=== PATIENT | female | born 1950 | race Caucasian/White ===

== ENCOUNTER 2018-10-02 09:27 | Inpatient (IN) | payer MEDICARE ==
[~2018-10-02] VITALS: Ht 162.6 cm; Wt 81.8 kg
[2018-10-02] MEDS ORDERED: ONDANSETRON 2MG/ML, 2ML ONE (09:33)
[2018-10-02] MEDS ORDERED: MORPHINE SULFATE 4 MG/ML, 1ML ONE (09:34)
[2018-10-02] MEDS ORDERED: ALBUTEROL/IPRATROPIUM 2.5MG/0.5MG, 3 ML ONE ×3 (09:35→21:24)
[2018-10-02 09:56] LABS: MEAN CORPUSCULAR HEMOGLOBIN 30.2 pg (27.0-34.8); MEAN CORPUSCULAR HGB CONC 32.5 g/dL (32.4-35.8); MEAN PLATELET VOLUME 7.1 fL (7.4-10.4); PLATELET COUNT 358 x10^3/uL (130-400); RED BLOOD COUNT 5.29 x10^6/uL (3.82-5.3); RED CELL DISTRIBUTION WIDTH 12.7 % (9.6-15.2)
--- NOTE | 2018-10-02 09:57 | NUR ---
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 PT ARRIVES RR34 AND IN DISTRESS, INITIAL SP02 86% ON 6L WITH CONT ALBUTEROL NEB INLINE. DR NGO AT [facility], PER DR NGO = PULM EDEMA. 2ND PIV LINE EST, LABS DRAWN, MONITORS PLACED. PT MED WITH ZOFRAN AND MORPHINE NOTED AND BIPAP INITIATED BY RT WITH EFFECT. SP02 IMPROVED TO 98% AND RR SLOWED TO 24. PT APPEARS LESS DESTRESS AND ABLE TO ANSWER QUESTIONS BY NODDING APPROPRIATELY. EKG COMPLETED. HR ST. PT DENIES CARDIAC HX
[2018-10-02] MEDS ORDERED: SODIUM CHLORIDE FLUSH 10ML SYR IVF ONE (10:00)
[2018-10-02] MEDS ORDERED: ONDANSETRON 2MG/ML, 2ML IVPush ONE (10:00)
[2018-10-02] MEDS ORDERED: MORPHINE SULFATE 4 MG/ML, 1ML IVPush ONE (10:00)
[2018-10-02] MEDS ORDERED: ALBUTEROL/IPRATROPIUM 2.5MG/0.5MG, 3 ML NEB ONE (10:00)
--- NOTE | 2018-10-02 10:00 | NUR ---
REPORT RECEIVED FROM ESTRELLITA MARTE. ASSUMED CARE OF PT. PT CURRENTLY SITTING UP ON GURNEY. PT ON BIPAP MACHINE. DIFFICULT TO AUSCULTATE LUNG SOUNDS D/T BIPAP MACHINE. COARSE T/O, WITH EXPIRATORY WHEEZES. PT AO X 4. SKIN PWD. 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 PT ON CONT BP, CARDIAC AND O2 MONITORS. CALL LIGHT WITHIN REACH. WILL CONT TO MONITOR PT.
[2018-10-02 10:02] LABS: INTERNATIONAL NORMALIZED RATIO 0.98 (0.93-1.1); PROTHROMBIN TIME 10.3 Seconds (9.6-11.5)
[2018-10-02 10:07] LABS: ALBUMIN 4.1 g/dL (3.4-5.0); ANION GAP 12 mmol/L (5-15); CALCIUM 9.1 mg/dL (8.5-10.1); CHLORIDE 109 mmol/L (98-107)
[2018-10-02 10:12] LABS: ALANINE AMINOTRANSFERASE 30 U/L (12-78); ALKALINE PHOSPHATASE 92 U/L (45-117); BASOPHILS # (AUTO) 0.12 x10^3/uL (0-0.1); BASOPHILS % (AUTO) 1 % (0-1); BILIRUBIN,TOTAL 0.7 mg/dL (0.2-1.0); EOSINOPHILS % (AUTO) 13 % (1-7); LYMPHOCYTES # (AUTO) 4.84 x10^3/uL (1-3.4); LYMPHOCYTES % (AUTO) 30 % (22-44); MD SCAN; MONOCYTES % (AUTO) 6 % (2-9); NEUTROPHILS # (AUTO) 8.29 x10^3/uL (1.8-6.8); NEUTROPHILS % (AUTO) 51 % (42-75); TOTAL PROTEIN 7.7 g/dL (6.4-8.2); TROPONIN I < 0.015 ng/mL (0.000-0.045)
--- NOTE | 2018-10-02 10:32 | NUR ---
AT BEDSIDE AT THIS TIME.
--- NOTE | 2018-10-02 10:34 | NUR ---
[facility] NGO AT BEDSIDE FOR EXPLANATION OF POC/RESULTS TO PT AND . PT AND VERBALIZE UNDERSTANDING.
[2018-10-02] MEDS ORDERED: AZITHROMYCIN 500 MG in SODIUM CHLORIDE 0.9% 250 ML IV ONE (11:00)
[2018-10-02] MEDS ORDERED: SODIUM CHLORIDE 0.9% 1,000ML IVBOLUS ONE (11:30)
--- NOTE | 2018-10-02 11:42 | NUR ---
PT CURRENTLY RESTING ON GURNEY. PT CURRENTLY DENIES NEED FOR ANXIOLYTICS. PT SITTING UP IN GURNEY. PT ON BIPAP. PT'S WORK OF BREATHING APPEARS LESS. NST 110'S ON SUPERIOR COURT CLERK. PT'S O2 SAT HAS IMPROVED FROM 92 TO 95. PT AWARE WE ARE WAITING FOR ADMISSION. AT BEDSIDE. PT ON CONT BP, CARDIAC AND O2 MONITORS. CALL LIGHT WITHIN REACH. WILL CONT TO MONITOR PT.
[2018-10-02] MEDS ORDERED: BISACODYL 10 MG SUPP PR PRN (12:00)
[2018-10-02] MEDS ORDERED: LABETALOL 5MG/ML, 20ML IVPush PRN (12:00)
[2018-10-02] MEDS ORDERED: ENALAPRILAT 1.25 MG/ML, 2ML IVPush PRN (12:00)
[2018-10-02] MEDS ORDERED: ONDANSETRON 2MG/ML, 2ML IVPush PRN (12:00)
[2018-10-02] MEDS ORDERED: ONDANSETRON ODT 4 MG PO PRN (12:00)
[2018-10-02] MEDS ORDERED: POLYETHYLENE GLYCOL 17 GM PACKET PO PRN (12:00)
[2018-10-02] MEDS ORDERED: ACETAMINOPHEN 325 MG TABLET PO PRN (12:00)
[2018-10-02] MEDS ORDERED: BUDE10.2 INH (12:20)
[2018-10-02] MEDS ORDERED: ALBU18HF INH (12:20)
[2018-10-02] MEDS ORDERED: ENOXAPARIN 40 MG/0.4 ML ONE (12:25)
[2018-10-02] MEDS ORDERED: methylPREDNISolone SOD SUCC 125 MG/2 ML ONE ×2 (12:25→18:19)
--- NOTE | 2018-10-02 12:30 | NUR ---
RT JADA AT BEDSIDE TO TRIAL PT ON NC. PT ON 5LNC. PT ABLE TO SPEAK IN FULL 5-7 WORD SENTENCES BEFORE BECOMING SOB. PT STILL OCCASIONALLY BREATHING WITH PURSED LIPS BUT STATES "I FEEL SO MUCH BETTER". PT AO X 4. SKIN PWD. AT BEDSIDE. CALL LIGHT WITHIN REACH. PT NST IN THE 90'S ON CLINICAL FIELD SPECIALIST. PT ON CONT CARDIAC, BP AND O2 MONITORS. WILL CONT TO MONITOR PT.
[2018-10-02] MEDS: methylPREDNISolone SOD SUCC 125 MG/2 ML IVPush SCH ×2 (12:40→18:23)
[2018-10-02] MEDS: ENOXAPARIN 40 MG/0.4 ML SQ SCH (12:40)
--- NOTE | 2018-10-02 12:49 | NUR ---
FREELANCE PATTERNMAKER DR. HARPER AT BEDSIDE FOR EVAL AT THIS TIME. BRAULIO DANIELS AT BEDSIDE FOR RECHECK.
--- NOTE | 2018-10-02 13:14 | NUR ---
ADMITTING MD POWERS AT BEDSIDE FOR EVAL AT THIS TIME. PT STILL APPEARS TO BE TOLERATING THE NC AT 5L. PT OCCAISIONALLY USING PURSED LIPPED BREATHING, BUT IS ABLE TO SPEAK IN FULL 5-7 WORD SENTENCES BEFORE BECOMING SOB. SKIN PWD. PT AO X 4. AT BEDSIDE. CALL LIGHT WITHIN REACH. WILL CONT TO MONITOR PT.
--- NOTE | 2018-10-02 13:46 | NUR ---
REPORT TO ESTRELLITA CEJA. PT MOVED FROM TR04 TO RM 2. PT AND PT'S VERBALIZE UNDERSTANDING OF POC AND THAT PT IS WAITING FOR ADMISSION.
--- NOTE | 2018-10-02 13:46 | NUR ---
PT MOVED TO ROOM 2, REPORT RECEIVED, CARE ASSUMED. PT ON MONITORS, ST PER MONITOR. AUTO BP AND PULSE OX IN PLACE. OXYGEN AT 4.5L NC. PT WITH C/O "FEELS LIKE I'M WHEEZING" WHEEZES T/O NOTED. CALL TO RT FOR TREATMENT. NO OTHER NEEDS EXPRESSED AT THIS TIME.
[2018-10-02] MEDS ORDERED: ALBUTEROL SULFATE 2.5 MG/3 ML NPPB SCH (14:00)
[2018-10-02] MEDS: ALBUTEROL/IPRATROPIUM 2.5MG/0.5MG, 3 ML NPPB SCH ×2 (14:10→21:27)
[2018-10-02] MEDS ORDERED: ALBUTEROL/IPRATROPIUM 2.5MG/0.5MG, 3 ML NPPB PRN (15:00)
--- NOTE | 2018-10-02 15:28 | NUR ---
PT TEARFUL AT TIMES, "I JUST GOT REALLY DEPRESSED." PT DENIES SI. ST PER MONITOR. PT RECEIVED RT TX FEELS BETTER. PT ASKING FOR FOOD. MEAL TRAY REQUESTED FROM DIETARY. PO FLUIDS AT BEDSIDE. NO OTHER NEEDS EXPRESSED AT THIS TIME. CONT TO MONITOR.
--- NOTE | 2018-10-02 16:30 | NUR ---
PT ASSISTED TO BSC. C/O SOME DIZZINESS WHEN STANDING. SLIGHT INCREASED IN RR. PT'S AT BEDSIDE. PT AWARE OF CONT TO WAIT FOR ROOM AVAILABILITY. WAITING FOR MEAL FROM DIETARY.
[2018-10-02] MEDS ORDERED: AZITHROMYCIN 500 MG in SODIUM CHLORIDE 0.9% 250 ML IV SCH (17:00)
--- NOTE | 2018-10-02 18:26 | NUR ---
PT SITTING UP ON GURNEY, NO ACUTE DISTRESS. PT MEDICATED ORDERED. ST PER MONITOR. PT'S AT BEDSIDE. PT TO BE PLACED ON HOSPITAL BED FOR COMFORT. PT HAS PO FLUIDS AT BEDSIDE. NO OTHER NEEDS EXPRESSED AT THIS TIME.
--- NOTE | 2018-10-02 18:37 | NUR ---
TASK RN: PT STAND AND TRANSFER TO [facility] BED W/O DIFFICULTY. CALL LIGHT W/I REACH AND BEDSIDE TABLE W/I REACH. NAD NOTED.
--- NOTE | 2018-10-02 18:58 | NUR ---
REPORT TO HERMILA HARO
--- NOTE | 2018-10-02 19:03 | NUR ---
REPORT FROM MARCIAL HARO. PT RESTING AND HAS NO NEEDS AT THIS TIME. CALL LIGHT IN REACH.
--- NOTE | 2018-10-02 19:39 | NUR ---
PT UP TO BATHROOM. PT AMBULATING WITH A STEADY GAIT. PT GIVEN DINNER TRAY. CALL LIGHT IN REACH
[2018-10-02] MEDS: SODIUM CHLORIDE FLUSH 10ML SYR IVF SCH (21:00)
[2018-10-02] MEDS ORDERED: FAMOTIDINE 20 MG TABLET PO SCH (21:00)
[2018-10-02] MEDS ORDERED: ACETAMINOPHEN 325 MG TABLET ONE (21:16)
--- NOTE | 2018-10-02 21:23 | NUR ---
PT HAD INCREASED DIFFICULTY BREATHING. PT HAS EXPRITORY WHEEZES. O2 INCREASED FROM 3 L TO 5 L. PT CALMED DOWN. RT CALLED FOR BREATHING TREATMENT. PT MEDICATED WITH TYLENOL FOR HEADACHE. CALL LIGHT IN REACH
[2018-10-02 23:06] VITALS: BP 123/71
[2018-10-03] MEDS: methylPREDNISolone SOD SUCC 125 MG/2 ML IVPush SCH ×2 (00:13→06:20)
[2018-10-03] MEDS: LORazepam 1MG TABLET PO PRN ×2 (00:13→23:40)
[2018-10-03 02:55] VITALS: BP 123/77
[2018-10-03 05:38] LABS: CHLORIDE 109 mmol/L (98-107)
[2018-10-03 05:43] LABS: MEAN CORPUSCULAR HEMOGLOBIN 30.1 pg (27.0-34.8); MEAN CORPUSCULAR HGB CONC 32.4 g/dL (32.4-35.8); MEAN PLATELET VOLUME 7.2 fL (7.4-10.4); PLATELET COUNT 259 x10^3/uL (130-400); RED BLOOD COUNT 4.41 x10^6/uL (3.82-5.3); RED CELL DISTRIBUTION WIDTH 13.1 % (9.6-15.2)
[2018-10-03 05:45] LABS: ALANINE AMINOTRANSFERASE 25 U/L (12-78); ALBUMIN 3.4 g/dL (3.4-5.0); ALKALINE PHOSPHATASE 62 U/L (45-117); ANION GAP 8 mmol/L (5-15); BILIRUBIN,TOTAL 0.7 mg/dL (0.2-1.0); CALCIUM 8.8 mg/dL (8.5-10.1); CREATININE 0.77 mg/dL (0.55-1.02); TOTAL PROTEIN 6.5 g/dL (6.4-8.2)
[2018-10-03 06:09] LABS: BASOPHILS # (AUTO) 0.01 x10^3/uL (0-0.1); BASOPHILS % (AUTO) 0 % (0-1); EOSINOPHILS % (AUTO) 0 % (1-7); LYMPHOCYTES # (AUTO) 0.93 x10^3/uL (1-3.4); LYMPHOCYTES % (AUTO) 5 % (22-44); MD SCAN; MONOCYTES # (AUTO) 0.12 x10^3/uL (0.2-0.8); MONOCYTES % (AUTO) 1 % (2-9); NEUTROPHILS # (AUTO) 16.79 x10^3/uL (1.8-6.8); NEUTROPHILS % (AUTO) 94 % (42-75)
[2018-10-03 06:40] VITALS: BP 123/78
[2018-10-03] MEDS: ALBUTEROL/IPRATROPIUM 2.5MG/0.5MG, 3 ML NPPB SCH ×5 (06:50→22:58)
[2018-10-03] MEDS ORDERED: ACETAMINOPHEN 325 MG TABLET PO PRN (08:30)
[2018-10-03] MEDS: SODIUM CHLORIDE FLUSH 10ML SYR IVF SCH ×2 (10:14→21:58)
[2018-10-03] MEDS: SENNA/DOCUSATE TABLET PO SCH (10:15)
[2018-10-03] MEDS: LACTOBACILLUS CHEW TABLET PO SCH ×3 (10:15→21:58)
[2018-10-03] MEDS: SODIUM CHLORIDE 0.9% 1,000 ML IV SCH (10:22)
[2018-10-03] MEDS: BUDESONIDE 0.5 MG/2 ML INHA INH SCH ×2 (10:45→19:00)
[2018-10-03] MEDS: ENOXAPARIN 40 MG/0.4 ML SQ SCH (13:01)
[2018-10-03 14:04] VITALS: BP 117/67
[2018-10-03] MEDS ORDERED: ALBUTEROL/IPRATROPIUM 2.5MG/0.5MG, 3 ML ONE (15:37)
[2018-10-03 19:09] VITALS: BP 115/63
[2018-10-04 02:44] VITALS: BP 119/74
[2018-10-04] MEDS: SODIUM CHLORIDE 0.9% 1,000 ML IV SCH (03:01)
[2018-10-04 05:48] LABS: MEAN CORPUSCULAR HEMOGLOBIN 31.1 pg (27.0-34.8); MEAN CORPUSCULAR HGB CONC 33.3 g/dL (32.4-35.8); MEAN CORPUSCULAR VOLUME 93.4 fL (80-100); MEAN PLATELET VOLUME 7.3 fL (7.4-10.4); PLATELET COUNT 250 x10^3/uL (130-400); RED BLOOD COUNT 4.12 x10^6/uL (3.82-5.3); RED CELL DISTRIBUTION WIDTH 13.1 % (9.6-15.2)
[2018-10-04 06:15] LABS: BASOPHILS # (AUTO) 0.01 x10^3/uL (0-0.1); BASOPHILS % (AUTO) 0 % (0-1); EOSINOPHILS % (AUTO) 0 % (1-7); LYMPHOCYTES # (AUTO) 1.17 x10^3/uL (1-3.4); LYMPHOCYTES % (AUTO) 6 % (22-44); MD SCAN; MONOCYTES # (AUTO) 0.76 x10^3/uL (0.2-0.8); MONOCYTES % (AUTO) 4 % (2-9); NEUTROPHILS # (AUTO) 17.01 x10^3/uL (1.8-6.8); NEUTROPHILS % (AUTO) 90 % (42-75)
[2018-10-04] MEDS: BUDESONIDE 0.5 MG/2 ML INHA INH SCH (06:40)
[2018-10-04] MEDS: ALBUTEROL/IPRATROPIUM 2.5MG/0.5MG, 3 ML NPPB SCH (06:40)
[2018-10-04 07:53] VITALS: BP_SYST 144; BP_SYST 145; BP_DIAS 82; BP_DIAS 84
[2018-10-04] MEDS ORDERED: CEFTRIAXONE PMX 2GM/50ML 50 ML IV SCH (08:00)
[2018-10-04] MEDS: LACTOBACILLUS CHEW TABLET PO SCH (09:13)
[2018-10-04] MEDS: SENNA/DOCUSATE TABLET PO SCH (09:13)
[2018-10-04] MEDS: SODIUM CHLORIDE FLUSH 10ML SYR IVF SCH (09:13)
[2018-10-04] MEDS ORDERED: LEVO750T6 PO (09:29)
[2018-10-04] MEDS ORDERED: ACID1TAB7 PO (09:29)
[2018-10-04] MEDS ORDERED: ALBUTEROL/IPRATROPIUM 2.5MG/0.5MG, 3 ML NPPB SCH (11:00)
== END 2018-10-04 11:57 | disposition home or self-care (01) | DRG 189 ==
LOC: ED 10:41 → EDIP 10:42 → ED 11:13 → 4NOR 22:53 → DCLOUNGE 10-04 11:40
PROVIDERS: ADMIT Internal Medicine; ATTEND Internal Medicine
PROC: 5A09357 Assistance with Respiratory Ventilation, Less than 24 Consecutive Hours, Continuous Positive Airway Pressure (ICD-10-PCS; principal; 2018-10-02)
DX: J96.01 Acute respiratory failure with hypoxia (principal); J44.1 Chronic obstructive pulmonary disease with (acute) exacerbation; R65.10 Systemic inflammatory response syndrome (SIRS) of non-infectious origin without acute organ dysfunction; G47.00 Insomnia, unspecified; Z82.49 Family history of ischemic heart disease and other diseases of the circulatory system; Z87.891 Personal history of nicotine dependence; Z88.0 Allergy status to penicillin; Z88.2 Allergy status to sulfonamides; Z88.8 Allergy status to other drugs, medicaments and biological substances
CPT/HCPCS: 36415; 36600; 71045; 80053; 82803; 83605; 84484; 85025; 85610; 85730; 87040; 93005; 94640; 96365; 96375; G0378; J0456; J0696; J1650; J2405; J7620; J7626; J2270; J2930; J7030; J7050